=== PATIENT | female | born 1985 | race American Indian/Alaskan Native ===

== ENCOUNTER 2017-05-01 16:33 | Emergency (ER) | payer OTHER ==
[2017-05-01 17:17] VITALS: BP 119/80
[2017-05-01] MEDS ORDERED: ULTRAM PO ONE (20:18)
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
== END 2017-05-01 21:57 | disposition home or self-care (01) ==
LOC: ED 16:33
DX: S33.8XXA Sprain of other parts of lumbar spine and pelvis, initial encounter (principal); V43.52XA Car driver injured in collision with other type car in traffic accident, initial encounter; Y92.488 Other paved roadways as the place of occurrence of the external cause; Y93.89 Activity, other specified; Y99.9 Unspecified external cause status
CPT/HCPCS: 72220